=== PATIENT | male | born 1990 | race Two or more races ===

== ENCOUNTER 2021-09-20 20:36 | Emergency (ER) | payer SELFPAY ==
[~2021-09-20] VITALS: Ht 175.3 cm; Wt 78.0 kg
[2021-09-20] MEDS ORDERED: DEXAMETHASONE 4 MG TAB PO STA (20:56)
[2021-09-20] MEDS ORDERED: KETOROLAC TROMETHAMINE 30 MG/ML VIAL IM STA (20:56)
[2021-09-20] MEDS ORDERED: LIDOCAINE 4% PATCH TP STA (20:56)
[2021-09-20] MEDS ORDERED: LIDOCAINE1 EAC1 EXT (20:58)
[2021-09-20] MEDS ORDERED: CYCLOBENZAPRINE5 MG PO (20:59)
[2021-09-20] MEDS ORDERED: ACETAMINOPHEN 325 MG TAB PO ONE (21:00)
== END 2021-09-20 23:09 | disposition home or self-care (01) ==
LOC: ER 20:58
DX: S39.012A Strain of muscle, fascia and tendon of lower back, initial encounter (principal); X50.0XXA Overexertion from strenuous movement or load, initial encounter; Y99.0 Civilian activity done for income or pay; F17.210 Nicotine dependence, cigarettes, uncomplicated
CPT/HCPCS: 99283; J1885; J8540